=== PATIENT | female | born 1965 | race African-American/Black ===

== ENCOUNTER 2017-09-09 20:12 | Emergency (ER) | payer OTHER ==
--- NOTE | 2017-09-09 20:26 | ER Document Report ---
ED Syncope and Near Syncope - General Chief Complaint: Syncope Stated Complaint: SYNCOPE Time Seen by Provider: 09/09/17 20:22 Mode of Arrival: Medic Information source: Patient, Relative, Emergency Med Personnel Cannot obtain history due to: Altered mental status Notes: HISTORY OBTAINED FROM FAMILY MEMBERS. - HPI Patient complains to provider of: Fainting Episode witnessed (by whom): Yes - FAMILY Single episoded occurred: 1 HOUR BEFORE E.D. ARRIVAL Symptoms prior to episode: Other - B.M. Position/Activity at time of episode: Sitting Details of activity: SITTING ON TOILET FOR BOWEL MOVEMENT Context: Became unresponsive, Collapsed Duration of LOC (min): 1 Injury location: None Current symptoms: Weakness Similar symptoms previously: No Recently seen / treated by doctor: Yes - [facility] - Related Data Allergies/Adverse Reactions: Sulfa (Sulfonamide Antibiotics) Allergy (Verified 09/10/17 02:17) Past Medical History - General Information source: Relative - Social History Smoking Status: Unknown if Ever Smoked Cigarette use (# per day): No Chew tobacco use (# tins/day): No Frequency of alcohol use: None Drug Abuse: None Lives with: Family Family History: None Patient has suicidal ideation: No Patient has homicidal ideation: No - Past Medical History Cardiac Medical History: Reports: None Pulmonary Medical History: Reports: None Neurological Medical History: Reports: None. Denies: Hx Cerebrovascular Accident, Hx Seizures Endocrine Medical History: Reports: None Renal/ Medical History: Reports: None Malignancy Medical History: Reports: Hx Lung Cancer GI Medical History: Reports: None Musculoskeltal Medical History: Reports None Psychiatric Medical History: Reports: None Past Surgical History: Reports: Other - BIOPSY LUNG MASS Review of Systems - Review of Systems -: Yes ROS unobtainable due to patient's medical condition Physical Exam - Vital signs Vitals: Pulse Ox 100 09/09/17 20:20 Interpretation: Tachycardic. No: Hypotensive, Hypoxic, Tachypneic, Febrile - General General appearance: Lethargic In distress: None - HEENT Head: Normocephalic Eyes: Pale conjunctiva Ears: Normal Nasal: Normal Mouth/Lips: Normal Mucous membranes: Dry Neck: Normal, Supple - Respiratory Respiratory status: No respiratory distress Breath sounds: No: Normal - ABSENT ON LEFT - Cardiovascular Rhythm: Regular, Tachycardia Heart sounds: Normal auscultation Murmur: No - Abdominal Inspection: Normal Distension: No distension Bowel sounds: Hypoactive - Extremities General upper extremity: Normal inspection General lower extremity: Normal inspection. No: Tender, Edema - Neurological Neuro grossly intact: No Cognition: Confused Orientation: Disoriented to place, Disoriented to time, Disoriented to events [place] Coma Scale Eye Opening: To Pain [place] Coma Scale Verbal: Confused [place] Coma Scale Motor: Obeys Commands [place] Coma Scale Total: 12 - Skin Skin Temperature: Warm Skin Moisture: Dry Skin Color: Normal Skin Turgor: Elastic Course - Vital Signs Vital signs: Temp Pulse Resp BP Pulse Ox 97.7 F 19 112/78 100 09/09/17 21:06 09/10/17 02:01 09/09/17 22:00 09/09/17 23:23 - Laboratory Result Diagrams: 09/10/17 00:56 09/09/17 23:28 Laboratory results interpreted by me: 09/09/17 09/09/17 09/10/17 21:29 23:28 00:56 WBC 19.1 H RBC 1.98 L Hgb 5.3 L Hct 16.6 L MCH 26.8 L MCHC 31.9 L RDW 19.8 H Seg Neuts % (Manual) 91 H Lymphocytes % (Manual) 3 L Abs Neuts (Manual) 18.0 H Sodium 133.0 L Chloride 91 L Carbon Dioxide 35 H BUN 24 H Glucose 180 H Calcium 8.0 L Alkaline Phosphatase 180 H Total Protein 4.9 L Albumin 2.4 L Urine Protein 100 H Urine Glucose (UA) 50 H Urine Ketones TRACE H - EKG Interpretation by Ma EKG shows normal: Sinus rhythm, [place], Intervals, QRS Complexes, ST-T Waves Rate: Tachycardia - Consults DR. Tommie DAWKINS Time consulted: 00:55 Reason for consultation: 09/10/17 02:03 ACCEPTS PATIENT FOR TRANSFER TO [facility]. Discharge - Discharge Clinical Impression: Dehydration Syncope Qualifiers: Syncope type: unspecified Qualified Code(s): R55 - Syncope and collapse Lung cancer Qualifiers: Laterality: left Lung location: unspecified part of lung Qualified Code(s): C34.92 - Malignant neoplasm of unspecified part of left bronchus or lung Anemia Qualifiers: Anemia type: unspecified type Qualified Code(s): D64.9 - Anemia, unspecified Condition: Fair Disposition: [facility]
[2017-09-09] MEDS ORDERED: ALTEPLASE INJ 2 MG VIAL (CATH CLEARANCE) IV ONE (20:48)
[2017-09-09] MEDS: NORMAL SALINE 1000 ML 1,000 ML IV PRN ×2 (21:22→23:44)
[2017-09-09] MEDS ORDERED: CEFTRIAXONE 1 GM/D5W RTU 1 GM/50 ML RTUPB IV ONE (21:39)
--- NOTE | 2017-09-09 21:50 | RADIOLOGY REPORT (SQ) ---
EXAM DESCRIPTION: CHEST SINGLE VIEW COMPLETED DATE/TIME: 09/09/2017 9:09 pm REASON FOR STUDY: SYNCOPE COMPARISON: None. EXAM PARAMETERS: NUMBER OF VIEWS: One view. TECHNIQUE: Single frontal radiographic view of the chest acquired. RADIATION DOSE: NA LIMITATIONS: None. FINDINGS: LUNGS AND PLEURA: Left hemithorax is nearly completely opacified with mild aeration in the apex. Right lung appears clear. MEDIASTINUM AND HILAR STRUCTURES: Right-sided contour appears normal. Left side is obscured due to a djacent lung opacity. HEART AND VASCULAR STRUCTURES: Appears normal size. BONES: No acute findings. HARDWARE: Right-sided PICC line catheter tip overlies the SVC at the level of the aortic arch. OTHER: No other significant finding. IMPRESSION: Left hemithorax is nearly completely opacified, the atelectasis -consolidation versus po ssible neoplastic process. TECHNICAL DOCUMENTATION: JOB ID: [id number] [id number] 2010 [employer]- All Rights Reserved Reading location - IP/workstation name: [email or web address]
[2017-09-09 21:58] LABS: APPEARANCE,URINE SLIGHTLY-CLOUDY; BILIRUBIN,URINE NEGATIVE (NEGATIVE); COLOR,URINE YELLOW; GLUCOSE, URINE 50 mg/dL (NEGATIVE); KETONES,URINE TRACE mg/dL (NEGATIVE); LEUKOCYTE ESTERASE,URINE NEGATIVE (NEGATIVE); NITRITE,URINE NEGATIVE (NEGATIVE); PROTEIN,URINE 100 mg/dL (NEGATIVE); URINE SPECIFIC GRAVITY 1.019; UROBILINOGEN,URINE NEGATIVE mg/dL (<2.0)
[2017-09-09] MEDS ORDERED: CEFTRIAXONE SODIUM 1,000 MG in NORMAL SALINE 100 ML IV ONE (22:30)
[2017-09-09 23:57] LABS: ALANINE AMINOTRANSFERASE 37 U/L (9-52); ALBUMIN 2.4 g/dL (3.5-5.0); ALKALINE PHOSPHATASE 180 U/L (38-126); ANION GAP 7 (5-19); ASPARTATE AMINO TRANSFERASE 32 U/L (14-36); BILIRUBIN,DIRECT 0.3 mg/dL (0.0-0.4); BILIRUBIN,TOTAL 0.4 mg/dL (0.2-1.3); BLOOD UREA NITROGEN 24 mg/dL (7-20); CARBON DIOXIDE 35 mmol/L (22-30); CHLORIDE 91 mmol/L (98-107); GLUCOSE 180 mg/dL (75-110); POTASSIUM 4.3 mmol/L (3.6-5.0); TOTAL PROTEIN 4.9 g/dL (6.3-8.2)
[2017-09-10 01:09] LABS: HEMATOCRIT 16.6 % (36.0-47.0); MEAN CORPUSCULAR HEMOGLOBIN 26.8 pg (27.0-33.4); MEAN CORPUSCULAR HGB CONC 31.9 g/dL (32.0-36.0); MEAN CORPUSCULAR VOLUME 84 fl (80-97); PLATELET COUNT 349 10^3/uL (150-450); RED BLOOD COUNT 1.98 10^6/uL (3.72-5.28); RED CELL DISTRIBUTION WIDTH 19.8 % (11.5-14.0); WHITE BLOOD COUNT 19.1 10^3/uL (4.0-10.5)
[2017-09-10 01:27] LABS: ABSOLUTE LYMPHOCYTES# (MANUAL) 0.6 10^3/uL (0.5-4.7); ABSOLUTE MONOCYTES # (MANUAL) 0.6 10^3/uL (0.1-1.4); BAND NEUTROPHILS % (MANUAL) 3 % (3-5); BASOPHILS % (MANUAL) 0 % (0-2); EOSINOPHILS % (MANUAL) 0 % (0-6); LYMPHOCYTES % (MANUAL) 3 % (13-45); MONOCYTES % (MANUAL) 3 % (3-13); SEGMENTED NEUTROPHILS % (MAN) 91 % (42-78); TOTAL CELLS COUNTED 100
[2017-09-10 01:31] LABS: ANISOCYTOSIS 2+; POIKILOCYTOSIS SLIGHT; POLYCHROMASIA SLIGHT; TOXIC GRANULATION SLIGHT
[2017-09-10 01:32] LABS: PLATELET CLUMPS PRESENT; PLATELET COMMENT ADEQUATE; PLATELET LARGE PRESENT; SCHISTOCYTES 1+
[2017-09-10 01:35] LABS: HEMOGLOBIN 5.3 g/dL (12.0-15.5)
[2017-09-10 02:24] VITALS: BP 120/76
--- NOTE | 2017-09-10 07:50 | EKG REPORT ---
SEVERITY:- ABNORMAL ECG - SINUS TACHYCARDIA NONSPECIFIC LATERAL ST-T CHANGES : Confirmed by: Jose Cruz Blanco MD 10-Sep-2017 07:50:09
== END 2017-09-10 02:30 | disposition short-term general hospital (02) ==
LOC: ER 20:12
DX: C34.92 Malignant neoplasm of unspecified part of left bronchus or lung (principal); R55 Syncope and collapse; E86.0 Dehydration; D64.9 Anemia, unspecified; R41.82 Altered mental status, unspecified; R53.1 Weakness
CPT/HCPCS: 93005; 99285; 96361; 51701; 96375; 96365; 36415; 87040; 85025; 87077; 80053; 81001; 87186; 71045; 93010; J2997; J0696; J7030